=== PATIENT | male | born 1990 | race Caucasian/White ===

== ENCOUNTER 2017-07-01 21:01 | Emergency (ER) | payer OTHER ==
[~2017-07-01] VITALS: Ht 167.6 cm; Wt 66.7 kg
[2017-07-01 21:07] VITALS: Ht 167.6 cm; Wt 66.7 kg
[2017-07-01] MEDS ORDERED: KETOROLAC 30 MG INJ IM STA (22:50)
[2017-07-02] MEDS ORDERED: AZIT250T94 PO (00:04)
[2017-07-02] MEDS ORDERED: PHEN177S43 MT (00:04)
[2017-07-02] MEDS ORDERED: IBUP-1542 PO (00:04)
[2017-07-02 00:31] VITALS: BP 131/80; PULSE 66; RESP 16; TEMP 98.2
--- NOTE | 2017-07-06 09:23 | ERD ---
ER Documentation Chief Complaint Chief Complaint back pain, sore throat HPI Patient is a 26-year-old male presenting to the emergency department with complaints of sore throat which began yesterday. He took Tylenol without relief. Associated symptoms include neck pain. He denies injuries. Symptoms are intermittent and moderate in severity. He denies fevers, chills, or other symptoms at this time. ROS All systems reviewed and are negative except as per history of present illness. Medications Home Meds Active Scripts Ibuprofen* (Motrin*) 600 Mg Tab, 600 MG PO Q6, #20 TAB Prov:RAMON HAQUE PA-C 07/02/17 Phenol* (Chloraseptic* [place]) 177 Ml [place].pump, 2 SPRAY MT Q2H Y for SORE THROAT, #1 BOTTLE Prov:RAMON HAQUE PA-C 07/02/17 Azithromycin* (Zithromax*) 250 Mg Tablet, 250 MG PO .ZPACK DIRECTED, #6 TAB TAKE 500 MG (2 TABS) THE FIRST DAY THEN 250 MG (1 TAB) DAYS 2-5 Prov:RAMON HAQUE PA-C 07/02/17 Reported Medications [None] No Conflict Check 04/21/11 Allergies Allergies: Coded Allergies: No Known Allergies (Verified Allergy, 04/21/11) PMhx/Soc History of Surgery: No Anesthesia Reaction: No Hx Neurological Disorder: No Hx Respiratory Disorders: No Hx Cardiac Disorders: No Hx Psychiatric Problems: No Hx Miscellaneous Medical Probl: No Hx Alcohol Use: Yes (occassional) Hx Substance Use: No Hx Tobacco Use: No Smoking Status: Never smoker Physical Exam Physical Exam Const: Nontoxic, well-appearing male in no acute distress. Head: Atraumatic Eyes: Normal Conjunctiva ENT: Normal External Ears, Nose and Mouth. Erythema noted to the posterior pharynx. No exudate. Airway is clear. No uvular deviation. Neck: Full range of motion..~ No meningismus. Ext: No cyanosis, or edema Neur: Awake and alert Psych: Normal Mood and Affect Results 24 hrs Current Medications Medications (Trade) Dose Ordered Sig/Wild Route PRN Reason Start Time Stop Time Status Last Admin Dose Admin Ketorolac Tromethamine (Toradol) 30 mg ONCE STAT IM 07/01/17 22:50 07/01/17 22:52 DC 07/01/17 23:10 Procedures/MDM 26-year-old male presents to the emergency department with complaints of pharyngitis. Physical examination does show erythema to the posterior pharynx. Low suspicion for a tonsillar abscess or other emergencies. Strep antigen test was sent to the lab, however given the patient's symptoms and physical exam I will treat empirically with antibiotics. He was stable for discharge with prescriptions. The patient is to return immediately for any new or worsening symptoms and have close primary care follow-up. Departure Diagnosis: Primary Impression: Pharyngitis Pharyngitis/tonsillitis etiology: unspecified etiology Qualified Code: J02.9 - Pharyngitis, unspecified etiology Condition: Fair Patient Instructions: Pharyngitis, Strep (Presumed) Additional Instructions: Call your primary care doctor TOMORROW for an appointment during the next 1-2 days.See the doctor sooner or return here if your condition worsens before your appointment time. RAMON HAQUE PA-C Jul 06, 2017 09:23
== END 2017-07-02 00:33 | disposition home or self-care (01) ==
LOC: FTE 21:01
DX: J02.9 Acute pharyngitis, unspecified (principal)
CPT/HCPCS: 87880; 96372; J1885; Z7502